=== PATIENT | female | born 1980 | race Two or more races ===

== ENCOUNTER 2020-06-13 18:39 | Emergency (ER) | payer BC, OTHER ==
[~2020-06-13] VITALS: Ht 170.2 cm; Wt 81.6 kg
[2020-06-13] MEDS ORDERED: methylPREDNISolone SOD SUCC 125 MG/2 ML VL IV ONE (20:00)
[2020-06-13] MEDS ORDERED: levoFLOXacin 750MG 150 ML IV ONE (20:00)
[2020-06-13 20:40] LABS: Basophils # (auto) 0 10 ^3/uL (0-0.2); Basophils % (auto) 0.1 % (0.0-2.0); Eosinophils # (auto) 0 10 ^3/uL (0-0.8); Hematocrit 42.4 % (36.0-46.0); Hemoglobin 14.3 g/dL (12.2-16.2); Lymphocytes # (auto) 0.7 10 ^3/uL (0.4-5.4); Lymphocytes % (auto) 10.3 % (10.0-50.0); Mean Corpuscular Hgb Conc. 33.7 g/dL (32.0-36.0); Mean Corpuscular Volume 85.9 fL (80.0-100.0); Monocytes # (auto) 0.6 10 ^3/uL (0-1.3); Monocytes % (auto) 8.2 % (0.0-12.0); Neutrophils # (auto) 5.9 10 ^3/uL (1.6-8.6); Neutrophils % (auto) 81.4 % (37.0-80.0); Platelet Count (auto) 274 10^3/uL (140-450); Red Blood Cells 4.93 10^6/uL (4.0-5.20); Red Cell Distribution Width 13.2 % (11.8-14.3); White Blood Cell 7.2 10^3/uL (4.4-10.8)
[2020-06-13 20:55] LABS: Alanine Aminotransferase 24 U/L (13-56); Albumin 3.5 g/dL (3.4-5.0); Anion Gap 8 (5-15); Blood Urea Nitrogen 15 mg/dL (7-18); Calcium 8.4 mg/dL (8.5-10.1); Carbon Dioxide 23 mmol/L (21-32); Chloride 108 mmol/L (98-107); Glucose 115 mg/dL (74-106); Potassium 3.4 mmol/L (3.5-5.1); Sodium 139 mmol/L (136-145)
[2020-06-13 21:03] LABS: Alkaline Phosphatase 87 U/L (45-117); Aspartate Aminotransferase 13 U/L (15-37); BUN/Creatinine Ratio 17.9; Bilirubin, Total 0.3 mg/dL (0.2-1.0); GFR African American 97 mL/min; GFR Non-African American 80 mL/min
[2020-06-13] MEDS ORDERED: ALBUTEROL SULF HFA 90MCG INH 200DOSE IN SCH ×2 (22:00)
[2020-06-13 23:23] VITALS: BP 104/64
== END 2020-06-14 00:40 | disposition left against medical advice (07) ==
LOC: EDBD 18:39 → ER 18:39
DX: U07.1 COVID-19 (principal); J45.901 Unspecified asthma with (acute) exacerbation
CPT/HCPCS: 36415; 36600; 71045; 80053; 82805; 84484; 84702; 85025; 87426